=== PATIENT | male | born 1965 | race Caucasian/White ===

== ENCOUNTER 2017-03-25 14:25 | Emergency (ER) | payer BC ==
[2017-03-25 15:06] VITALS: BP 152/91
[2017-03-25] MEDS ORDERED: Aspirin Low Dose CHEW TAB* 81 MG PO ONE (15:57)
--- NOTE | 2017-03-25 16:06 | UC ---
General HPI - HPI Summary HPI Summary: The pt present to with SO. [place] second language - pt speaks well. intermittently pt's helps interpret. Pt declined hospital intepreter services 1) pt reports x 1 week intermittent left sided "sick in the chest" on left side. pt states feels tired when has discomfort. no fever, chills. No sob, no cp. no radiation, no sob. Pt reports occasional nausea with sx. Pt denies current sx. has woken him from sleep. No current pain. neg stress test 4-5 years ago. no htn, hld, tobacco. Father with [place] age 70+ 2)x 1 week pt intermittent with discomfort left lateral neck with radiation to left dorsal, later forearm. pain better with heat and motrin. better with neck extension. no weakness. RHD. Pt states sx started after lying on floor looking up, working on car. Pain improved with holding arm to body and ibuprofen - last dose at midnight pt called PCP today - directed to urgent care. states didnt discuss cp Pt's medications reviewed this visit - History of Current Complaint Chief Complaint: UCBackPain Stated Complaint: BACK STRAIN/PAIN Time Seen by Provider: 03/25/17 15:38 Hx Obtained From: Patient, Family/Personal Fitness Manager Onset/Duration: Sudden Onset Timing: Intermittent Episodes Lasting: Onset Severity: Moderate Current Severity: Moderate Pain Intensity: 5 Associated Signs & Symptoms: Positive: Chest Pain, Other - left UE paresthesia. 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 - Family History Known Family History: Positive: Cardiac Disease, Hypertension - Social History Occupation: Employed Full-time Alcohol Use: None Substance Use Type: None Smoking Status (MU): Former Smoker Review of Systems Constitutional: Negative Skin: Negative Motor: Other Neurovascular: Other - left posterior forearm paresthesia Musculoskeletal: Other: - left upper back pain Neurological: Paresthesia Psychological: Negative All Other Systems Reviewed And Are Negative: Yes Physical Exam Triage Information Reviewed: Yes Appearance: Well-Appearing, No Pain Distress, Well-Nourished Vital Signs: Initial Vital Signs Temp 98.9 F 03/25/17 14:53 Pulse 65 03/25/17 14:53 Resp 18 03/25/17 14:53 BP 152/91 03/25/17 14:53 Pulse Ox 100 03/25/17 14:53 Vital Signs Reviewed: Yes Eye Exam: Normal Eyes: Positive: Conjunctiva Clear ENT Exam: Normal ENT: Positive: Normal ENT inspection, Hearing grossly normal, Pharynx normal, TMs normal Neck exam: Normal Neck: Positive: Supple, Nontender, No Lymphadenopathy Respiratory Exam: Normal Respiratory: Positive: Chest non-tender, Lungs clear, Normal breath sounds, No respiratory distress, No accessory muscle use, Other: - no reproducible CP Cardiovascular Exam: Normal Cardiovascular: Positive: RRR, No Murmur, Pulses Normal, Other: - no bruits 2+ radial, ulnar CBT< 2 sec Bowel Sounds: Positive: Present Musculoskeletal: Positive: Other: - no spinous process pain c/t/l/s +mild TTP left paraspinal + abduction shoulder with increased paresthesia + flex/ext elbow + pronate/supinate elbow + flex/ext wrist Neurological Exam: Normal Neurological: Positive: Other: - + thumb up, a ok, finger spread, finger cross 2 + bicep - no clonus Psychological Exam: Normal Psychological: Positive: Normal Response To Family Skin Exam: Normal Course/Dx - Course Course Of Treatment: d/w pt at length. concern for cervical radiculopathy LUE medrol dose pack, sling, heat, stretch,PCP f./u. concern for cardiac origin for cp. EKG non concerning for acute process. recommend pt to ED for further eval - to drive. report given to Adelaida Ye NP. ASA given - Differential Dx - Multi-Symptom Provider Diagnoses: chest pain. cervical radiculopathy. paresthesia Discharge - Discharge Plan Condition: Stable Disposition: OTHER Discharge Disposition Comment: chest pain, left UE paresthesia, left cervical radiculopathy Prescriptions: methylPREDNISolone [Medrol Dosepak 4 MG*] 0 mg PO .SEE RADHA INSTRUCTION #1 tab Patient Education Materials: Paresthesia (ED), Cervical Radiculopathy (ED) Forms: *Work Release Referrals: BANDAR Guillen [Primary Care Provider] - Additional Instructions: The doctor that evaluated you today, recommends you go to the emergency department for additional evaluation of your chest discomfort. Go directly to the emergency department - the providers there are expecting you The doctor thinks your neck and arm pain is related to an irritated nerve. It is recommended you wear the arm sling for comfort and support. Take your arm out of your sling and slowly bend/straighten your elbow and your shoulder Take prednisone as prescribed until gone. Take with food. Okay to take Tylenol every 8 hours for pain. Okay to take ibuprofen (motrin, advil) 400mg every 6 hous for pain. Take with food. Apply heat to your upper back with slow gentle stretching exercise Schedule a follow-up appointment with your doctor
== END 2017-03-25 16:18 ==
LOC: UCCORT 14:25
DX: R07.9 Chest pain, unspecified (principal); M54.12 Radiculopathy, cervical region; R20.2 Paresthesia of skin; Z82.49 Family history of ischemic heart disease and other diseases of the circulatory system; Z87.891 Personal history of nicotine dependence
CPT/HCPCS: 93005; 99203; A9270-GY; G0463

== ENCOUNTER 2017-03-28 12:10 | Emergency (ER) | payer BC ==
--- NOTE | 2017-03-28 14:44 | UC ---
UC General HPI - HPI Summary HPI Summary: pt and his spencer give hx. pt was seen here on friday and dx with a pinched nerve. he was tx with prednisone. he is now better and wants to return to work. he needs a note to go back because he has been out for 3-4 days. states able to move arms and neck with no problems now. denies numb/tingle weak arms. denies cp. 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 - Family History Known Family History: Positive: Cardiac Disease, Hypertension - Social History Occupation: Employed Full-time Lives: With Family Alcohol Use: None Substance Use Type: None Smoking Status (MU): Former Smoker Review of Systems Constitutional: Negative Skin: Negative Eyes: Negative ENT: Negative Respiratory: Negative Cardiovascular: Negative Gastrointestinal: Negative Genitourinary: Negative Motor: Negative Neurovascular: Negative Musculoskeletal: Negative Neurological: Negative Psychological: Negative Is Patient Immunocompromised?: No All Other Systems Reviewed And Are Negative: Yes Physical Exam Triage Information Reviewed: Yes Appearance: Well-Appearing Vital Signs Reviewed: Yes Eye Exam: Normal ENT: Positive: Normal ENT inspection Neck: Positive: Supple, Nontender Respiratory: Positive: Lungs clear, Normal breath sounds Cardiovascular: Positive: RRR, No Murmur Abdomen Description: Positive: Nontender, No Organomegaly, Soft Bowel Sounds: Positive: Present Musculoskeletal: Positive: Other: - neck/back without gross deformity, swelling and non tender. full ROM throughout. Extremities s/v/m intact x4 with 5/5 strength ans 2+ reflexes 4. Neurological: Positive: Alert Psychological: Positive: Normal Response To Family, Age Appropriate Behavior Skin Exam: Normal Course/Dx - Course Course Of Treatment: exam unremarkable thus will return to work per pt request. - Differential Dx - Multi-Symptom Provider Diagnoses: Radicular pain-resolved. Normal exam. Discharge - Discharge Plan Condition: Stable Disposition: HOME Patient Education Materials: Cervical Radiculopathy (ED), Acute Neck Pain (ED) Referrals: BANDAR Guillen [Primary Care Provider] - Additional Instructions: FOLLOW UP MICKIE ROSALES 04/15/17 SCHEDULED OR SOONER NEEDED.
[2017-03-28 14:47] VITALS: BP 147/86
== END 2017-03-28 14:58 | disposition home or self-care (01) ==
LOC: UCCORT 12:10
DX: Z02.79 Encounter for issue of other medical certificate (principal)
CPT/HCPCS: 99211; G0463